=== PATIENT | male | born 1955 | race Caucasian/White ===

== ENCOUNTER 2019-02-28 08:39 | Day surgery (SDC) | payer BC ==
[2019-02-28 09:52] LABS: ADD MAN DIFF? NO
[2019-02-28 09:56] LABS: BASOPHIL # 0.1 10^3/ul (0.0-0.1); BASOPHILS % 0.6 % (0.0-2.0); EOSINOPHILS # 0.3 10^3/ul (0.0-0.5); EOSINOPHILS % 2.4 % (0.0-7.0); HEMATOCRIT 46.7 % (42.0-52.0); HEMOGLOBIN 15.7 g/dl (14.0-18.0); LYMPHOCYTES # 1.9 10^3/ul (0.8-2.9); LYMPHOCYTES % 17.3 % (15.0-51.0); MEAN CORPUSCULAR HEMOGLOBIN 31.7 pg (29.0-33.0); MEAN CORPUSCULAR HGB CONC 33.6 g/dl (32.0-37.0); MEAN CORPUSCULAR VOLUME 94.3 fl (82.0-101.0); MEAN PLATELET VOLUME 9.9 fl (7.4-10.4); MONOCYTE # 0.7 10^3/ul (0.3-0.9); MONOCYTES % 6.4 % (0.0-11.0); NEUTROPHIL # 7.9 10^3/ul (1.6-7.5); NEUTROPHILS % 72.9 % (39.0-77.0); PLATELET COUNT 210 10^3/UL (140-415); RED BLOOD COUNT 4.95 10^6/ul (4.70-6.10)
[2019-02-28 09:56] LABS: WHITE BLOOD COUNT 10.9 10^3/ul (4.8-10.8)
[2019-02-28] MEDS: SOD CHLORIDE 0.9% 1,000 ML IV (10:13)
[2019-02-28 10:20] LABS: ALANINE AMINOTRANSFERASE 21 IU/L (13-69); ALBUMIN 4.2 g/dl (3.3-4.9); ALBUMIN/GLOBULIN RATIO 1.23; ALKALINE PHOSPHATASE 62 IU/L (42-121); ANION GAP 7 (5-13); ASPARTATE AMINO TRANSFERASE 23 IU/L (15-46); BILIRUBIN,INDIRECT 0.7 mg/dl (0-1.1); BILIRUBIN,TOTAL 0.7 mg/dl (0.2-1.3); CALCIUM 9.2 mg/dl (8.4-10.2); CARBON DIOXIDE 26 mmol/L (21-31); CHLORIDE 107 mmol/L (97-110); CREATININE 1.14 mg/dl (0.61-1.24); Estimated GFR > 60 mL/min (>60); GLUCOSE 99 mg/dl (70-220); POTASSIUM 4.6 mmol/L (3.5-5.1); SODIUM 140 mmol/L (135-144); TOTAL PROTEIN 7.6 g/dl (6.1-8.1)
[2019-02-28 10:30] LABS: BLOOD UREA NITROGEN 21 mg/dl (7-20)
[2019-02-28] MEDS ORDERED: LIDOCAINE 2% (MDV) 20 ML INJ (12:01)
[2019-02-28] MEDS ORDERED: BUPIVACAINE 0.5% (SDV) 30 ML INJ (12:01)
[2019-02-28] MEDS ORDERED: MIDAZOLAM 1 MG/ML 2 ML INJ (12:18)
[2019-02-28] MEDS ORDERED: ONDANSETRON 4 MG INJ IV (12:30)
[2019-02-28] MEDS ORDERED: HYDROmorphONE 1 MG/5 ML IV SYRINGE IV ×3 (12:30)
[2019-02-28] MEDS ORDERED: OXYCODONE/ACETAMINOPHEN (5/325) TAB PO ×2 (12:30)
[2019-02-28] MEDS ORDERED: MEPERIDINE 25 MG INJ IV (12:30)
[2019-02-28] MEDS ORDERED: IPRATROPIUM (NEB) 0.5 MG/2.5 ML AMP HHN (12:30)
[2019-02-28] MEDS ORDERED: FENTAnyl 50 MCG/ML VIAL IV ×3 (12:30)
[2019-02-28] MEDS ORDERED: DIPHENHYDRAMINE 50 MG INJ IV (12:30)
[2019-02-28] MEDS ORDERED: EPHEDrine 25 MG/5 ML SYG IV (12:30)
[2019-02-28] MEDS ORDERED: LABETALOL HCL 20MG INJ IV (12:30)
[2019-02-28] MEDS ORDERED: ALBUTEROL 0.083% (NEB) 2.5 MG/3 ML AMP HHN (12:30)
[2019-02-28] MEDS ORDERED: hydrALAzine 20 MG INJ IV (12:30)
[2019-02-28] MEDS ORDERED: PROPOFOL 40 ML (12:47)
[2019-02-28] MEDS ORDERED: LIDOCAINE 100 MG SYRINGE (12:47)
[2019-02-28] MEDS ORDERED: ROCURONIUM 50 MG INJ (12:48)
[2019-02-28] MEDS ORDERED: SUCCINYLCHOLINE CHLORIDE 100 MG/5 ML SYG IV (12:48)
[2019-02-28] MEDS ORDERED: ONDANSETRON 4 MG INJ (12:48)
[2019-02-28] MEDS ORDERED: PHENYLephrine (100 MCG/ML) 10ML SYG (12:53)
[2019-02-28] MEDS: BUPIVACAINE 0.25% (MPF) 30 ML INJ (12:55)
[2019-02-28] MEDS: HYDROCODONE/APAP (5/325) TAB PO (13:30)
[2019-02-28] MEDS: CEFAZOLIN 2 GM/50 ML (PMX) 50 ML IVPB (14:53)
== END 2019-02-28 15:20 | disposition home or self-care (01) ==
LOC: SDS 08:39
DX: R22.1 Localized swelling, mass and lump, neck (principal); I10 Essential (primary) hypertension; E78.5 Hyperlipidemia, unspecified; I48.91 Unspecified atrial fibrillation; E78.00 Pure hypercholesterolemia, unspecified
CPT/HCPCS: 14041; 71045; 80053; 85025; 93005